=== PATIENT | female | born 1990 | race Asian ===

== ENCOUNTER 2020-10-12 08:32 | Day surgery (SDC) | payer BC, SELFPAY ==
[~2020-10-12] VITALS: Ht 175.3 cm; Wt 64.9 kg
[2020-10-12 10:05] LABS: HCG,QUAL RESULT NEGATIVE (NEGATIVE)
[2020-10-12] MEDS ORDERED: LABETALOL 100 MG/ 20ML VIAL IVP PRN (11:15)
[2020-10-12] MEDS ORDERED: MEPERIDINE HCL/PF 25 MG/ML DISP.SYRIN IVP PRN (11:15)
[2020-10-12] MEDS ORDERED: ONDANSETRON HCL 4 MG/2 ML VIAL IVP PRN (11:15)
[2020-10-12] MEDS ORDERED: MIDAZOLAM HCL 2 MG/2 ML VIAL (VERSED) IVP PRN (11:15)
[2020-10-12] MEDS ORDERED: LR 1,000 ML IV SCH (11:15)
[2020-10-12] MEDS ORDERED: HYDROmorphone 1 MG INJ. 1 MG/ML AMPUL IVP PRN ×2 (11:15)
[2020-10-12] MEDS ORDERED: METOCLOPRAMIDE HCL 10 MG/2 ML VIAL IVP PRN (11:15)
[2020-10-12 12:50] VITALS: BP_SYST 117
== END 2020-10-12 14:15 | disposition home or self-care (01) ==
LOC: SMU 08:32 → SDS 08:32
PROVIDERS: ATTEND Otolaryngology
DX: D38.5 Neoplasm of uncertain behavior of other respiratory organs (principal); J32.4 Chronic pansinusitis; R09.82 Postnasal drip; J34.2 Deviated nasal septum; J32.9 Chronic sinusitis, unspecified; Z20.828 Contact with and (suspected) exposure to other viral communicable diseases; Z79.899 Other long term (current) drug therapy
CPT/HCPCS: 30140; 30520; 31255; 31256; 84703; 87070 ×2; 87075; 87101; 87205; 88305; 88311; U0003